=== PATIENT | female | born 1955 | race Caucasian/White ===

== ENCOUNTER 2023-01-19 22:43 | Emergency (ER) | payer BC, OTHER ==
[2023-01-19 23:21] LABS: Eosinophils 1 % (0-10); Hematocrit 38.2 % (36.0-47.0); Hemoglobin 12.6 g/dL (12.0-16.0); Lymphocytes 27 % (21-51); MDiff Complete? YES; Mean Corpuscular HGB CONC 33.1 g/dL (32.0-36.0); Mean Corpuscular Hemoglobin 31.1 pg (27.0-31.0); Mean Corpuscular Volume 94.1 fl (78.0-98.0); Mean Platelet Volume 7.9 fL (7.4-10.4); Monocytes 11 % (0-10); Neutrophil 61 % (42-75); Platelet Adequacy Comment Appears Decreased; Platelet Count 92 10x3/uL (130-400); Red Blood Cell (RBC) Count 4.06 mill/uL (4.20-5.40); White Blood Cell (WBC) Count 5.3 10x3/uL (4.8-10.8)
[2023-01-19 23:30] LABS: ALT (SGPT) 29 U/L (8-55); AST (SGOT) 44 U/L (5-34); Albumin 3.4 g/dL (3.4-4.8); Alkaline Phosphatase 92 U/L (40-110); Anion Gap 15 mmol/L (10-20); BUN (Urea Nitrogen) 7 mg/dL (9.8-20.1); Bilirubin, Total 0.7 mg/dL (0.2-1.2); Calc. Creatinine Clearance 0 mL/min (70-130); Calcium 8.7 mg/dL (7.8-10.44); Carbon Dioxide 24 mmol/L (23-31); Chloride 96 mmol/L (98-107); Estimated GFR 96; Glucose 104 mg/dL (80-115); Lipase 35 U/L (8-78); Potassium 3.6 mmol/L (3.5-5.1); Protein, Total 7.4 g/dL (5.8-8.1); Sodium 131 mmol/L (136-145)
[2023-01-19 23:54] LABS: Bilirubin Negative (Negative); Blood, Urine Negative (Negative); Clarity Clear (Clear); Glucose, Urine (Dipstick) Negative (Negative); Ketone, Urine Negative (Negative); Leukocyte Negative (Negative); Nitrite Negative (Negative); Protein, Urine (Dipstick) Negative (Neg-Trace); RBC/HPF None Seen HPF (0-3); Urobilinogen 0.2 mg/dL (Less than 2)
[2023-01-19 23:55] LABS: CAUTI Indications for Culture Pelvic or flank pain; Squamous Epithelial 0-3 HPF (0-3); WBC/HPF None Seen HPF (0-3)
[2023-01-19 23:56] LABS: Urine Culture Reflex No No
[2023-01-19 23:58] LABS: Magnesium 1.1 mg/dL (1.6-2.6)
[2023-01-20] MEDS ORDERED: Morphine 4 MG/ML VIAL ONE (00:16)
[2023-01-20] MEDS ORDERED: Magnesium Oxide 400 MG TAB ONE (00:16)
== END 2023-01-20 07:57 | disposition home or self-care (01) ==
LOC: MADERS 22:43
DX: R11.10 Vomiting, unspecified (principal); M25.551 Pain in right hip; E83.42 Hypomagnesemia; R19.7 Diarrhea, unspecified; I10 Essential (primary) hypertension; E03.9 Hypothyroidism, unspecified
CPT/HCPCS: 80053; 81001; 83605; 83690; 83735; 85025; 96361; 96374; J2270